=== PATIENT | male | born 1945 | race Caucasian/White ===

== ENCOUNTER 2020-12-05 12:49 | Outpatient (CLI) | payer MEDICARE, BC ==
[2020-12-02 16:06] LABS: CREATININE 1.45 MG/DL (0.60-1.10); eGFR 48 ML/MIN
[2020-12-04 11:14] LABS: % FREE PSA 32.6 % (.); PSA, FREE 0.62 ng/mL
[2020-12-05] MEDS ORDERED: iohexol 350MG/ML 100ml bottle IV ONE (13:08)
[2020-12-05] MEDS ORDERED: nitroGLYCERIN 0.4mg SUBLingual tab SL ONE (13:14)
[2020-12-05 13:25] VITALS: BP 116/72
[2020-12-05 13:30] VITALS: BP 111/60
[2020-12-05 13:35] VITALS: BP 113/69
== END 2020-12-05 23:59 | disposition home or self-care (01) ==
LOC: 64 CT 12:49
PROVIDERS: ATTEND Otolaryngology
DX: N40.1 Benign prostatic hyperplasia with lower urinary tract symptoms (principal); I70.90 Unspecified atherosclerosis
CPT/HCPCS: 36415; 75572; 82565; 84153; 84154; Q9967

== ENCOUNTER 2021-01-25 14:28 | Outpatient (CLI) | payer MEDICARE, BC ==
[2021-01-25 15:13] LABS: BLOOD UREA NITROGEN 30 MG/DL (7-18); CREATININE 1.54 MG/DL (0.60-1.10); POTASSIUM 4.6 MMOL/L (3.5-5.1); eGFR 45 ML/MIN
== END 2021-01-25 23:59 | disposition home or self-care (01) ==
LOC: LAB 14:28
PROVIDERS: ATTEND Otolaryngology
DX: E03.9 Hypothyroidism, unspecified (principal); E29.1 Testicular hypofunction; N28.9 Disorder of kidney and ureter, unspecified
CPT/HCPCS: 36415; 82565; 84132; 84402; 84403; 84443; 84520

== ENCOUNTER 2021-10-16 13:38 | Day surgery (SDC) | payer MEDICARE, BC ==
[2021-10-16] VITALS (9 sets, daily range): BP systolic 112–138; BP diastolic 50–78
[~2021-10-16] VITALS: Ht 167.6 cm; Wt 73.0 kg
[2021-10-16] MEDS ORDERED: normal saline 1,000 ML IV SCH (14:00)
[2021-10-16] MEDS ORDERED: diphenhydrAMINE 25mg capsule PO PRN (14:00)
[2021-10-16] MEDS ORDERED: LORazepam 0.5 MG tablet PO PRN (14:00)
[2021-10-16] MEDS ORDERED: MONT-40 PO (14:14)
[2021-10-16] MEDS ORDERED: ROSU40TA22 PO (14:14)
[2021-10-16] MEDS ORDERED: LISI20TA28 PO (14:14)
[2021-10-16] MEDS ORDERED: ASPI-1265 PO (14:15)
[2021-10-16] MEDS ORDERED: fentaNYL/PF 50MCG/1 ML 2ML syringe ONE (14:47)
[2021-10-16] MEDS ORDERED: midazolam 1 mg/ML 2ml injection ONE (14:48)
[2021-10-16] MEDS ORDERED: iohexol 350MG/ML 100ml bottle IV ONE (14:48)
[2021-10-16] MEDS ORDERED: nitroGLYCERIN-Tridil 50MG/D5W 250 ML IV ONE (14:52)
[2021-10-16] MEDS ORDERED: verapamil 2.5 mg/ml inj IV ONE (14:52)
[2021-10-16] MEDS ORDERED: LIDOcaine 1% (10mg/ml)w/preservative inj. 20ml MDV ONE (14:52)
[2021-10-16] MEDS ORDERED: heparin 1,000unit/ml 10ml vial 0 ML ONE (14:53)
[2021-10-16] MEDS ORDERED: iohexol 350 MG/1 ML 200ml bottle ONE (15:45)
[2021-10-16] MEDS ORDERED: heparin 1,000unit/ml 10ml vial 10 ML ONE (15:45)
[2021-10-16] MEDS ORDERED: clopidogrel 300mg tablet ONE (15:56)
[2021-10-16] MEDS ORDERED: furosemide 40mg/4ml inj ONE (16:12)
[2021-10-16] MEDS ORDERED: HYDROcodone/acetaminophen 10/325mg tab PO ONE (18:10)
== END 2021-10-16 19:25 | disposition home or self-care (01) ==
LOC: SSTAY O 13:38
PROVIDERS: ATTEND Internal Medicine Interventional Cardiology
DX: R07.89 Other chest pain (principal); I25.10 Atherosclerotic heart disease of native coronary artery without angina pectoris; I10 Essential (primary) hypertension; Z79.82 Long term (current) use of aspirin; Z79.899 Other long term (current) drug therapy; Z90.49 Acquired absence of other specified parts of digestive tract; Z98.890 Other specified postprocedural states; Z72.89 Other problems related to lifestyle; Z80.3 Family history of malignant neoplasm of breast; Z83.3 Family history of diabetes mellitus; Z82.49 Family history of ischemic heart disease and other diseases of the circulatory system
CPT/HCPCS: 93005; 93458; 99152; 99153; C1725; C1751; C1769; C1874; C1894; C9600; J1644; J1940; J2250; J3010; J3490; Q0163; Q9967; A4620